=== PATIENT | male | born 1985 | race Caucasian/White ===

== ENCOUNTER 2019-08-05 06:48 | Inpatient (IN) ==
[2019-07-30 16:43] LABS: Basophils # (Auto) 0.03 K/mcL (0.00-0.30); Basophils % (Auto) 0.4 % (0.0-2.0); Eosinophils # (Auto) 0.31 K/mcL (0.00-0.70); Granulocytes % (Auto) 40.8 % (38.0-78.0); Hematocrit 44.7 % (40.1-51.0); Hemoglobin 15.6 g/dL (13.7-17.5); Lymphocytes % (Auto) 47.4 % (15.5-49.0); Mean Corpuscular HGB Conc 34.9 g/dL (31.0-36.0); Mean Platelet Volume 9.5 fL (7.4-10.4); Monocytes # (Auto) 0.58 K/mcL (0.10-0.90); Monocytes % (Auto) 7.4 % (1.0-12.0); Platelet Count 214 K/mcL (140-440); RBC 4.86 M/mcL (4.63-6.08); Red Cell Distribution Width 13.6 % (11.5-14.5); WBC 7.8 K/mcL (4.50-11.00)
[2019-07-30 16:54] LABS: Blood Urea Nitrogen 12 mg/dl (6-20); Calcium 10.1 mg/dl (8.6-10.4); Carbon Dioxide 24 mmol/L (22-30); Chloride 96 mmol/L (96-108); Glomerular Filtration Rate 112; Glucose 88 mg/dL (70-105)
[2019-07-30 17:36] LABS: INR 0.9 (0.9-1.1); Prothrombin Time 12.5 sec (11.9-14.5)
[2019-07-30 18:15] LABS: Appearance,Urine CLEAR; Bacteria,Urine 0 /hpf (0); Bilirubin,Urine NEG (NEG); Color,Urine YELLOW; Culture Indicated,Urine NO; Glucose,Urine (UA) NEGATIVE (NEG); Ketones,Urine NEG (NEG); Leukocyte Esterase,Urine NEG /uL (NEG); Mucus,Urine FEW /hpf (0); Nitrate,Urine NEG (NEG); Protein,Urine 30 mg/dL (NEG); Specific Gravity,Urine 1.021 (1.000-1.035); Urine Blood NEG mg/dL (<0.03); Urine RBC 1 /hpf (0-1); Urine Squamous Epithelial Cell 1 /hpf (0-4); Urine WBC 1 /hpf (0-4); Urobilinogen,Urine NEG (NEG)
[~2019-08-05 06:48] MED LIST: 0.9 % SODIUM CHLORIDE 9 ML, ROPIVACAINE HCL/PF 49.5 ML, EPINEPHrine 0.5 MG IJ SCH; ACETAMINOPHEN 500 MG TABLET PO SCH; IPRATROPIUM/ALBUTEROL 3 ML AMPUL.NEB NEB PRN; PREGABALIN 75 MG CAPSULE PO SCH; SCOPOLAMINE 1 PATCH PATCH TOPICAL PRN; ceFAZolin 2 GM in DEXTROSE 5% IN WATER 50 ML IV SCH; oxyCODONE 10 MG TAB.ER.12H PO SCH
[2019-08-05] MEDS ORDERED: fentaNYL 100 MCG/2 ML VIAL IV ONE (09:10)
[2019-08-05] MEDS ORDERED: ePHEDrine 50 MG/ML AMPUL IV ONE (09:10)
[2019-08-05] MEDS ORDERED: PROPOFOL 200 MG/20 ML VIAL IV ONE (09:10)
[2019-08-05] MEDS ORDERED: ROCURONIUM 10 MG/ML ML IV ONE (09:10)
[2019-08-05] MEDS ORDERED: MIDAZOLAM 5 MG/5 ML VIAL IV ONE (09:10)
[2019-08-05] MEDS ORDERED: TRANEXAMIC ACID 1,000 MG/10 ML VIAL IV ONE ×2 (09:10→10:29)
[2019-08-05] MEDS ORDERED: ONDANSETRON 4 MG/2 ML VIAL IV ONE (09:10)
[2019-08-05] MEDS ORDERED: GLYCOPYRROLATE 0.2 MG/ML VIAL IV ONE (09:10)
[2019-08-05] MEDS ORDERED: LIDOCAINE HCL/PF 100 MG/5 ML SYRINGE IV ONE (09:10)
[2019-08-05] MEDS ORDERED: SUGAMMADEX SODIUM 200 MG/2 ML VIAL IV ONE (09:10)
[2019-08-05] MEDS ORDERED: PHENYLEPHRINE 10 MG/ML VIAL IV ONE (09:10)
[2019-08-05] MEDS ORDERED: SUCCINYLCHOLINE 20 MG/ML ML IV ONE (09:10)
[2019-08-05] MEDS ORDERED: KETAMINE 100 MG/ML ML IV ONE (09:10)
[2019-08-05] MEDS ORDERED: FLUMAZENIL 0.1 MG/ML ML IV PRN (10:04)
[2019-08-05] MEDS ORDERED: NALOXONE HCL 0.4 MG/ML VIAL IV PRN (10:04)
[2019-08-05] MEDS ORDERED: PROMETHAZINE 25 MG/ML VIAL IV PRN (10:04)
[2019-08-05] MEDS ORDERED: ePHEDrine 50 MG/ML AMPUL IV PRN (10:04)
[2019-08-05] MEDS ORDERED: ONDANSETRON 4 MG/2 ML VIAL IV PRN ×2 (10:04→10:29)
[2019-08-05] MEDS ORDERED: IPRATROPIUM/ALBUTEROL 3 ML AMPUL.NEB NEB PRN (10:04)
[2019-08-05] MEDS ORDERED: METOPROLOL TARTRATE 5 MG/5 ML VIAL IV PRN (10:04)
[2019-08-05] MEDS ORDERED: diphenhydrAMINE 50 MG/ML VIAL IV PRN (10:04)
[2019-08-05] MEDS ORDERED: METHOCARBAMOL 1,000 MG/10 ML VIAL IV PRN (10:04)
[2019-08-05] MEDS ORDERED: MEPERIDINE 25 MG/ML SYRINGE IV PRN (10:04)
[2019-08-05] MEDS ORDERED: ATROPINE SULFATE 0.4 MG/ML VIAL IV PRN (10:04)
[2019-08-05] MEDS ORDERED: GENTAMICIN SULFATE 800 MG/20 ML VIAL IR ONE (10:11)
[2019-08-05] MEDS ORDERED: LACTATED RINGERS 1,000 ML IV SCH (10:15)
[2019-08-05] MEDS ORDERED: KETOROLAC 15 MG/ML VIAL IV PRN (10:29)
[2019-08-05] MEDS ORDERED: MAGNESIUM HYDROXIDE 30 ML ORAL.SUSP PO PRN (10:29)
[2019-08-05] MEDS ORDERED: TEMAZEPAM 15 MG CAPSULE PO PRN (10:29)
[2019-08-05] MEDS ORDERED: ACETAMINOPHEN 325 MG TABLET PO PRN (10:29)
[2019-08-05] MEDS ORDERED: BISACODYL 10 MG SUPP.RECT PR PRN (10:29)
[2019-08-05] MEDS ORDERED: POLYETHYLENE GLYCOL 3350 17 GM PACKET PO PRN (10:29)
[2019-08-05] MEDS ORDERED: BENZOCAINE/MENTHOL 1 LOZENGE PO PRN (10:29)
[2019-08-05] MEDS ORDERED: FLEETS ADULT ENEMA PR PRN (10:29)
--- NOTE | 2019-08-05 10:29 | Brief Operative Note ---
Date of procedure: 08/05/19 Pre-op diagnosis: Right hip avn Post-op diagnosis: same Procedure: Right hip merrill Grafts/Implants: Yes Anesthesia: GETA Complications: none Surgeon: Hussain Schreiber Management Coordinator: Kenney Rowe Estimated blood loss (cc): 100 Specimens Removed/Pathology: none sent Condition: stable Disposition: PACU
--- NOTE | 2019-08-05 10:42 | XRay Report ---
CLINICAL INFORMATION: hip arthroplasty COMPARISON: None. FINDINGS: Single AP view of the pelvis taken in the OR shows femoral stem template and acetabular prostheses to be anatomically aligned. No osseous abnormality IMPRESSION: Intraoperative film as as described Interpreted and Authenticated by: Carl Valencia 08/05/19
--- NOTE | 2019-08-05 10:57 | Discharge Summary ---
Ortho Discharge - [facility] - Patient Instructions Diet: Regular Diet Activity: activity as tolerated, weight bearing as tolerated Total Hip Protocol: Follow activity instructions as provided by Physical Therapy. Dressing Care: May shower in 2 days - Follow Up Plan Follow Up Appointments: Kenney Rowe PA-C [Physician Appeals Manager] - 08/20/19 11:20 am Disposition: Home, Self-Care Prognosis: Good Rehab Potential: Good I certify that the patient requires SNF services: No Overall status at discharge: patient is progressing back to baseline - Orders For Discharge Prescriptions: Docusate Sodium [Colace] 100 mg PO BID #60 cap Transmission Status: Pending to [facility] #[id number] Aspirin [Ecotrin] 325 mg PO BID #60 tab.ec Transmission Status: Pending to [facility] #[id number] HYDROcodone/APAP 10/325MG [[place] 10-325Mg] 1 - 2 tab PO Q4HP PRN #75 tab PRN Reason: Per Pain Protocol Prescription Printed
[2019-08-05] MEDS: fentaNYL 100 MCG/2 ML VIAL IV PRN ×4 (11:20→11:26)
[2019-08-05] MEDS: HYDROmorphone 2 MG/ML VIAL IV PRN ×4 (11:33→21:13)
--- NOTE | 2019-08-05 11:39 | XRay Report ---
CLINICAL INFORMATION: Post-op Total Hip COMPARISON: None. FINDINGS: Right total hip prostheses is anatomically aligned. No osseous abnormality. Soft tissue swelling over the surgical site seen as expected IMPRESSION: Negative Interpreted and Authenticated by: Carl Valencia 08/05/19
--- NOTE | 2019-08-05 11:46 | Operative Note ---
DATE OF OPERATION: 08/05/2019 PREOPERATIVE DIAGNOSIS: Right hip degenerative arthritis, severe. POSTOPERATIVE DIAGNOSIS: Right hip degenerative arthritis, severe. PROCEDURE: Right total hip arthroplasty. SURGEON: Hussain Schreiber MD NATURAL RESOURCE ECONOMIST: Kenney Rowe PA-C. This provider's expertise and technical skill were required throughout the case. The PA assisted with preoperative coordination, intraoperative retraction, wound closure, dressing and splint application, as well as postoperative documentation and care coordination. ANESTHESIA: General LMA anesthesia. ESTIMATED BLOOD LOSS: About 100 mL COMPLICATIONS: None. IMPLANTS: Lew components with a size 6 femur, a size 56 cup with a 35 mm screw with a hooded liner and a 36 mm ceramic ball with a +5 neck length. DESCRIPTION OF PROCEDURE: The patient was brought to the operating room and put to sleep with general LMA anesthesia. Once asleep, the patient had the right hip sterilely prepped and draped in the usual sterile fashion. Once this was done, we then had a timeout and confirmed the operative site by initials, consent form and x-ray. Once this was complete, we were able to make a superior approach to the hip through the [place], exposed the hip through the superior approach and made the neck cut at 32 mm in length from the center of hip rotation. Once done, we removed the ball. 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 We then subluxed the hip anteriorly and reamed up to the size 56, placed a 56 porous ingrowth cup with a 35 mm screw with excellent purchase. Once done, we were able to then place a hooded liner posteriorly and then removed osteophytes anteriorly. I irrigated thoroughly again and then we broached up to the size 6, took x-rays with a size 6 stem. This seemed to be slightly less offset, near equal leg length. At this point, we reamed distally to allow for further advancement of the stem. This was broached deeper. Once this was broached another 5 mm deeper, this was then trialed with a 5 mm neck length. This was very stable through the arc of motion and up to 90 degrees of internal rotation. We irrigated thoroughly and implanted a porous ingrowth stem from [place] with a small amount of cement distally for secondary fixation. We then placed a +5 ceramic ball with a 5 mm extended neck. This was very stable. We irrigated thoroughly, closed the capsule with #1 Ethibond, closed this fascial layer with #1 Stratafix and closed the skin with Stratafix and adhesive closure. The patient tolerated this well. There was no complication. RBH:natalie Job ID: [id number] Doc ID: [id number] Hussain Schreiber MD
[2019-08-05] MEDS: LACTATED RINGERS 1,000 ML IV SCH (13:25)
[2019-08-05] MEDS: HYDROcodone/APAP 10/325MG TABLET PO PRN ×3 (13:52→21:59)
[2019-08-05] MEDS: 0.9 % SODIUM CHLORIDE 10 ML SYRINGE IV SCH ×2 (14:19→21:03)
[2019-08-05] MEDS: ceFAZolin 1 GM VIAL IV SCH ×2 (14:41→22:00)
[2019-08-05] MEDS ORDERED: WARFARIN 5 MG TABLET PO ONE (18:53)
[2019-08-05] MEDS ORDERED: ASPIRIN 325 MG ENTERIC COATED TABLET PO SCH (21:00)
[2019-08-05] MEDS ORDERED: SERTRALINE 50 MG TABLET PO SCH (21:00)
[2019-08-05] MEDS ORDERED: CLOBETASOL PROPIONATE 1 DOSE TUBE TOPICAL SCH (21:00)
[2019-08-05] MEDS ORDERED: SENNOSIDES 1 TABLET PO SCH (21:00)
[2019-08-05] MEDS ORDERED: NEBIVOLOL HCL 10 MG PO SCH (21:00)
[2019-08-05] MEDS: DOCUSATE SODIUM 100 MG CAPSULE PO SCH (21:02)
[2019-08-06] MEDS: HYDROmorphone 2 MG/ML VIAL IV PRN ×2 (00:14→05:21)
[2019-08-06] MEDS: HYDROcodone/APAP 10/325MG TABLET PO PRN ×3 (01:51→10:37)
[2019-08-06] MEDS: LACTATED RINGERS 1,000 ML IV SCH ×2 (03:25→07:11)
[2019-08-06] MEDS: 0.9 % SODIUM CHLORIDE 10 ML SYRINGE IV SCH (05:21)
[2019-08-06] MEDS ORDERED: LEVOTHYROXINE 50 MCG TABLET PO SCH (07:30)
[2019-08-06] MEDS: DOCUSATE SODIUM 100 MG CAPSULE PO SCH (08:52)
[2019-08-06] MEDS ORDERED: CETIRIZINE 10 MG TABLET PO SCH (09:00)
[2019-08-06] MEDS ORDERED: LISINOPRIL 20 MG TABLET PO SCH (09:00)
[2019-08-06] MEDS ORDERED: NON FORMULARY MEDICATION 1 DOSE MISCELL (Lansoprazole [Prevacid] 30 MG) PO SCH (09:00)
== END 2019-08-06 10:45 | disposition home or self-care (01) | DRG 470 ==
LOC: MEDSUR 06:48
PROVIDERS: ADMIT Orthopaedic Surgery; ATTEND Orthopaedic Surgery